=== PATIENT | male | born 1995 | race Caucasian/White ===

== ENCOUNTER 2017-07-16 14:16 | Inpatient (IN) | payer BC, OTHER ==
[~2017-07-16] VITALS: Ht 182.9 cm; Wt 86.2 kg
[2017-07-16] MEDS ORDERED: MAGNESIUM HYDROXIDE 30 ML LIQUID UDC PO PRN (18:00)
[2017-07-16] MEDS ORDERED: MIRALAX 17 GM POWD.PACK PO PRN (18:00)
[2017-07-16] MEDS ORDERED: LORAZEPAM 2 MG/1 ML VIAL IM PRN (18:00)
[2017-07-16] MEDS ORDERED: LOPERAMIDE HCL 2 MG CAPSULE PO PRN ×2 (18:00)
[2017-07-16] MEDS ORDERED: ONDANSETRON 4 MG/2 ML VIAL IM PRN (18:00)
[2017-07-16 18:45] LABS: BASOPHILS % (AUTO) 0.2 % (0.0-2.0); EOSINOPHILS # (AUTO) 0.1 K/uL (0.0-0.7); EOSINOPHILS % (AUTO) 1.6 % (0.0-7.0); HEMATOCRIT 45.6 % (36.7-47.1); HEMOGLOBIN 15.4 g/dL (12.5-16.3); LYMPHOCYTES # (AUTO) 1.4 K/uL (20.0-40.0); LYMPHOCYTES % (AUTO) 23.3 % (20.5-51.5); MEAN CORPUSCULAR HEMOGLOBIN 29.6 uug (23.8-33.4); MEAN CORPUSCULAR HGB CONC 34 g/dL (32.5-36.3); MEAN CORPUSCULAR VOLUME 87.5 fL (73.0-96.2); MONOCYTES # (AUTO) 0.5 K/uL (2.0-10.0); MONOCYTES % (AUTO) 8.3 % (0.0-11.0); NEUTROPHILS % (AUTO) 66.6 % (38.5-71.5); PLATELET COUNT (AUTO) 165 K/uL (152-348); WHITE BLOOD COUNT (AUTO) 5.9 K/uL (3.6-10.2)
[2017-07-16 18:51] LABS: ALANINE AMINOTRANSFERASE 19 U/L (16-63); ALKALINE PHOSPHATASE 67 U/L (50-136); ASPARTATE AMINOTRANSFERASE 12 U/L (15-37); BILIRUBIN,TOTAL 0.2 mg/dL (0.2-1.0); CARBON DIOXIDE 30 mmol/L (21-32); CHLORIDE 101 mmol/L (98-107); CREATININE 1.1 mg/dL (0.6-1.3); GLUCOSE 104 mg/dL (74-106); MAGNESIUM 1.9 mg/dL (1.8-2.4); TOTAL PROTEIN, SERUM 7.2 g/dL (6.4-8.2); UREA NITROGEN, BLOOD 12 mg/dL (7-18)
[2017-07-16 18:56] LABS: ETHANOL < 3 MG/DL (0-0)
[2017-07-16 18:59] LABS: *AMPHETAMINE, URINE NEGATIVE (NEGATIVE); *BARBITURATE, URINE NEGATIVE (NEGATIVE); *CANNABINOID, URINE NEGATIVE (NEGATIVE); *COCCAINE, URINE NEGATIVE (NEGATIVE); *OPIATE, URINE POSITIVE (NEGATIVE); *PHENCYCLIDINE SCREEN,URINE NEGATIVE (NEGATIVE)
[2017-07-16] MEDS: LORAZEPAM 1 MG TABLET PO PRN (19:06)
[2017-07-16] MEDS: ONDANSETRON ODT 4 MG TAB.RAPDIS SL PRN (19:06)
[2017-07-16] MEDS: BUPRENORPHINE HCL 2 MG TAB.SUBL SL PRN (19:06)
[2017-07-16] MEDS: METHOCARBAMOL 750 MG TABLET PO PRN (19:07)
[2017-07-16 19:38] LABS: THYROID STIMULATING HORMONE 0.902 mIU/mL (0.358-3.740)
[2017-07-16 20:00] VITALS: BP 114/81
[2017-07-16] MEDS ORDERED: LORAZEPAM 1 MG TABLET PO SCH (21:00)
[2017-07-16] MEDS: IBUPROFEN 600 MG TABLET PO PRN (21:19)
[2017-07-16] MEDS: GABAPENTIN 300 MG CAPSULE PO SCH (21:19)
[2017-07-16] MEDS: CLONIDINE HCL 0.1 MG TABLET PO PRN (21:19)
[2017-07-16] MEDS: DICYCLOMINE HCL 20 MG TABLET PO PRN (21:19)
[2017-07-16] MEDS ORDERED: CHLO100T17 PO (22:24)
[2017-07-17] VITALS: BP 111/70
[2017-07-17] MEDS: LORAZEPAM 1 MG TABLET PO PRN ×2 (01:01→11:03)
[2017-07-17 04:00] VITALS: BP 114/61
[2017-07-17 08:00] VITALS: BP 122/72
[2017-07-17] MEDS: GABAPENTIN 300 MG CAPSULE PO SCH ×3 (08:13→21:19)
[2017-07-17] MEDS: METHOCARBAMOL 750 MG TABLET PO PRN (08:13)
[2017-07-17] MEDS: BUPRENORPHINE HCL 2 MG TAB.SUBL SL SCH ×4 (08:13→21:19)
[2017-07-17] MEDS ORDERED: TUBERCULIN,PURIF.PROT.DERIV. 5 TU/0.1 ML TEST ID ONE (09:00)
[2017-07-17] MEDS: ONDANSETRON ODT 4 MG TAB.RAPDIS SL PRN ×2 (11:03→21:19)
[2017-07-17] MEDS: BUPRENORPHINE HCL 2 MG TAB.SUBL SL PRN (11:04)
[2017-07-17 12:00] VITALS: BP 130/80
[2017-07-17] MEDS: IBUPROFEN 600 MG TABLET PO PRN (13:09)
[2017-07-17 16:00] VITALS: BP 124/77
[2017-07-17] MEDS: chlorproMAZINE 25 MG TABLET PO SCH (16:19)
[2017-07-17 20:00] VITALS: BP 145/86
[2017-07-17] MEDS ORDERED: LORAZEPAM 1 MG TABLET PO SCH (21:00)
[2017-07-18] MEDS: DICYCLOMINE HCL 20 MG TABLET PO PRN (06:31)
[2017-07-18] MEDS: ONDANSETRON ODT 4 MG TAB.RAPDIS SL PRN (06:31)
[2017-07-18 08:01] VITALS: BP 116/77
[2017-07-18] MEDS ORDERED: HYDROXYZINE PAMOATE 25 MG CAPSULE PO PRN (09:00)
[2017-07-18 09:08] LABS: HEPATITIS B SURFACE AG Negative (Negative)
[2017-07-18] MEDS: chlorproMAZINE 25 MG TABLET PO SCH ×2 (09:20→16:39)
[2017-07-18] MEDS: GABAPENTIN 300 MG CAPSULE PO SCH ×2 (09:20→15:13)
[2017-07-18] MEDS: BUPRENORPHINE HCL 2 MG TAB.SUBL SL SCH ×3 (09:21→21:20)
[2017-07-18] MEDS: LORAZEPAM 1 MG TABLET PO PRN (09:38)
[2017-07-18] MEDS ORDERED: BENZOCAINE ORAL CARE 12 ML BOTTLE MM PRN (11:00)
[2017-07-18 12:10] VITALS: BP 149/83
[2017-07-18] MEDS: KETOROLAC TROMETHAMINE 30 MG INJ IM PRN (12:18)
[2017-07-18] MEDS: CLONIDINE HCL 0.1 MG TABLET PO PRN (12:19)
[2017-07-18] MEDS: LORAZEPAM 1 MG TABLET PO SCH ×2 (15:13→21:18)
[2017-07-18 16:35] VITALS: BP 135/82
[2017-07-18] MEDS: ACETAMINOPHEN 325 MG TABLET PO PRN (16:39)
[2017-07-18 20:00] VITALS: BP 129/75
[2017-07-18] MEDS ORDERED: GABAPENTIN 300 MG CAPSULE PO SCH (21:00)
[2017-07-18] MEDS: CLONIDINE HCL 0.1 MG TABLET PO SCH (21:19)
[2017-07-18] MEDS: AMOXICILLIN-CLAVUL 875-125MG TABLET PO SCH (21:19)
[2017-07-18] MEDS: LACTOBACILLUS RHAMNOSUS GG 1 EACH CAPSULE PO SCH (21:20)
[2017-07-19 05:30] VITALS: BP 138/79
[2017-07-19] MEDS: AMOXICILLIN-CLAVUL 875-125MG TABLET PO SCH ×2 (08:41→20:31)
[2017-07-19] MEDS: chlorproMAZINE 25 MG TABLET PO SCH ×2 (08:41→17:42)
[2017-07-19] MEDS: GABAPENTIN 300 MG CAPSULE PO SCH ×3 (08:42→20:32)
[2017-07-19] MEDS: CLONIDINE HCL 0.1 MG TABLET PO SCH ×3 (08:42→20:31)
[2017-07-19] MEDS: LACTOBACILLUS RHAMNOSUS GG 1 EACH CAPSULE PO SCH ×2 (08:42→20:32)
[2017-07-19 08:48] VITALS: BP 117/75
[2017-07-19] MEDS ORDERED: BUPRENORPHINE HCL 2 MG TAB.SUBL SL SCH (09:00)
[2017-07-19] MEDS ORDERED: LORAZEPAM 1 MG TABLET PO SCH ×3 (09:00→21:00)
[2017-07-19 12:20] VITALS: BP 111/63
[2017-07-19] MEDS: BUPRENORPHINE HCL 2 MG TAB.SUBL SL SCH ×2 (14:30→20:32)
[2017-07-19] MEDS: DICYCLOMINE HCL 20 MG TABLET PO SCH ×2 (14:30→20:31)
[2017-07-19 16:55] VITALS: BP 125/68
[2017-07-19 20:00] VITALS: BP 138/85
[2017-07-19] MEDS: KETOROLAC TROMETHAMINE 30 MG INJ IM PRN (20:30)
[2017-07-19] MEDS: BACLOFEN 10 MG TABLET PO SCH (20:30)
[2017-07-19] MEDS: diphenhydrAMINE 50 MG CAPSULE PO PRN (20:31)
[2017-07-20 02:34] VITALS: BP 121/77
[2017-07-20] MEDS: KETOROLAC TROMETHAMINE 30 MG INJ IM PRN ×2 (06:40→15:32)
[2017-07-20 08:09] VITALS: BP 118/70
[2017-07-20] MEDS ORDERED: LORAZEPAM 1 MG TABLET PO SCH (09:00)
[2017-07-20] MEDS: BACLOFEN 10 MG TABLET PO SCH ×2 (09:02→20:26)
[2017-07-20] MEDS: GABAPENTIN 300 MG CAPSULE PO SCH ×3 (09:02→20:26)
[2017-07-20] MEDS: DICYCLOMINE HCL 20 MG TABLET PO SCH ×3 (09:03→20:26)
[2017-07-20] MEDS: LACTOBACILLUS RHAMNOSUS GG 1 EACH CAPSULE PO SCH ×2 (09:03→20:26)
[2017-07-20] MEDS: chlorproMAZINE 25 MG TABLET PO SCH ×2 (09:03→16:53)
[2017-07-20] MEDS: BUPRENORPHINE HCL 2 MG TAB.SUBL SL SCH ×4 (09:03→20:26)
[2017-07-20] MEDS: LORAZEPAM 1 MG TABLET PO SCH ×3 (09:03→20:27)
[2017-07-20] MEDS: CLONIDINE HCL 0.1 MG TABLET PO SCH ×2 (09:03→20:27)
[2017-07-20] MEDS: AMOXICILLIN-CLAVUL 875-125MG TABLET PO SCH ×2 (09:04→20:25)
[2017-07-20] MEDS: ACETAMINOPHEN 325 MG TABLET PO PRN (11:01)
[2017-07-20 12:00] VITALS: BP 106/60
[2017-07-20] MEDS ORDERED: DIPH50CA37 PO (13:53)
[2017-07-20] MEDS ORDERED: IBUP-1955 PO (13:53)
[2017-07-20] MEDS ORDERED: METH-406 PO (13:53)
[2017-07-20] MEDS ORDERED: GABA-534 PO (13:53)
[2017-07-20] MEDS ORDERED: Amoxicillin-Clavul 875MG Tab PO (13:53)
[2017-07-20] MEDS ORDERED: LACT1CAP57 PO (13:53)
[2017-07-20] MEDS ORDERED: DICY20TA28 PO (13:53)
[2017-07-20] MEDS ORDERED: HYDR-3895 PO (13:53)
[2017-07-20] MEDS ORDERED: CLON0.1T14 PO (13:53)
[2017-07-20] MEDS: MAG HYDROX/AL HYDROX/SIMETH 30 ML LIQUID UDC PO PRN ×2 (15:31→21:13)
[2017-07-20 16:00] VITALS: BP 127/81
[2017-07-20 20:00] VITALS: BP 112/63
[2017-07-20] MEDS: diphenhydrAMINE 50 MG CAPSULE PO PRN (20:26)
[2017-07-20] MEDS: METHOCARBAMOL 750 MG TABLET PO PRN (23:47)
[2017-07-21] VITALS: BP 125/69
[2017-07-21 04:00] VITALS: BP 130/74
[2017-07-21 08:00] VITALS: BP 108/64
[2017-07-21] MEDS ORDERED: BUPRENORPHINE HCL 2 MG TAB.SUBL SL SCH (09:00)
[2017-07-21] MEDS ORDERED: LORAZEPAM 1 MG TABLET PO SCH (09:00)
[2017-07-21] MEDS: BACLOFEN 10 MG TABLET PO SCH ×2 (09:35→20:49)
[2017-07-21] MEDS: CLONIDINE HCL 0.1 MG TABLET PO SCH ×2 (09:35→20:49)
[2017-07-21] MEDS: DICYCLOMINE HCL 20 MG TABLET PO SCH ×3 (09:35→20:49)
[2017-07-21] MEDS: chlorproMAZINE 25 MG TABLET PO SCH ×2 (09:35→16:32)
[2017-07-21] MEDS: LACTOBACILLUS RHAMNOSUS GG 1 EACH CAPSULE PO SCH ×2 (09:35→20:48)
[2017-07-21] MEDS: AMOXICILLIN-CLAVUL 875-125MG TABLET PO SCH ×2 (09:35→20:49)
[2017-07-21] MEDS: GABAPENTIN 300 MG CAPSULE PO SCH ×3 (09:35→20:49)
[2017-07-21 12:00] VITALS: BP 106/62
[2017-07-21] MEDS: DOCUSATE SODIUM 250 MG CAPSULE PO SCH (12:16)
[2017-07-21] MEDS ORDERED: MAGNESIUM CITRATE 296 ML BOTTLE PO ONE (13:00)
[2017-07-21 16:00] VITALS: BP 98/60
[2017-07-21 20:00] VITALS: BP 118/71
[2017-07-22] MEDS: MAG HYDROX/AL HYDROX/SIMETH 30 ML LIQUID UDC PO PRN (00:40)
[2017-07-22 08:00] VITALS: BP 124/72
[2017-07-22] MEDS: chlorproMAZINE 25 MG TABLET PO SCH (08:07)
[2017-07-22] MEDS: AMOXICILLIN-CLAVUL 875-125MG TABLET PO SCH (08:07)
[2017-07-22 08:08] VITALS: BP 124/72
[2017-07-22] MEDS: GABAPENTIN 300 MG CAPSULE PO SCH (08:08)
[2017-07-22] MEDS: LACTOBACILLUS RHAMNOSUS GG 1 EACH CAPSULE PO SCH (08:08)
[2017-07-22] MEDS: DOCUSATE SODIUM 250 MG CAPSULE PO SCH (08:08)
[2017-07-22] MEDS: CLONIDINE HCL 0.1 MG TABLET PO SCH (08:08)
[2017-07-22] MEDS: DICYCLOMINE HCL 20 MG TABLET PO SCH (08:09)
[2017-07-22] MEDS: BACLOFEN 10 MG TABLET PO SCH (08:09)
== END 2017-07-22 09:32 | DRG 895 ==
LOC: SRC 17:34
PROVIDERS: ADMIT Internal Medicine; ATTEND Internal Medicine
PROC: HZ2ZZZZ Detoxification Services for Substance Abuse Treatment (ICD-10-PCS; principal; 2017-07-16)
PROC: HZ31ZZZ Individual Counseling for Substance Abuse Treatment, Behavioral (ICD-10-PCS; 2017-07-18)
DX: F11.23 Opioid dependence with withdrawal (principal); I15.9 Secondary hypertension, unspecified; F20.0 Paranoid schizophrenia; F17.210 Nicotine dependence, cigarettes, uncomplicated; F13.230 Sedative, hypnotic or anxiolytic dependence with withdrawal, uncomplicated; G47.00 Insomnia, unspecified; Z59.1 Inadequate housing; Z81.1 Family history of alcohol abuse and dependence; Z91.89 Other specified personal risk factors, not elsewhere classified; K59.03 Drug induced constipation; K04.7 Periapical abscess without sinus; F32.9 Major depressive disorder, single episode, unspecified
CPT/HCPCS: 36415; 80307; 80361; 83735; 84443; 85025; 86580; 86592; 86705; 86803; 87340; 87806; A4663; A9150; G0480; J1885; Q0161; Q0162; Q0163